=== PATIENT | female | born 1985 | race Hispanic/Latino ===

== ENCOUNTER 2021-05-24 15:21 | Observation (INO) | payer BC ==
[~2021-05-24] VITALS: Ht 162.6 cm; Wt 143.3 kg
[2021-05-24 15:22] VITALS: BP 142/88
[2021-05-24 16:29] LABS: BASOPHILS % (AUTO) 0.2 % (0.0-5.0); EOSINOPHILS % (AUTO) 0.3 % (0.0-8.0); HEMATOCRIT 34.5 % (36-48); LYMPHOCYTES % (AUTO) 15.6 % (21.0-51.0); MEAN CORPUSCULAR HEMOGLOBIN 29.1 pg (27.0-33.0); MEAN CORPUSCULAR HGB CONC 33.3 g/dL (32.0-36.0); MEAN CORPUSCULAR VOLUME 87.3 fL (79-99); MONOCYTES % (AUTO) 5.6 % (3.0-13.0); NEUTROPHILS % (AUTO) 77.7 % (40.0-77.0); PLATELET COUNT (AUTO) 270 K/uL (130-400); RED BLOOD CELL COUNT(AUTO) 3.95 MIL/uL (4.00-5.50); RED CELL DISTRIBUTION WIDTH 13.6 % (11.0-15.5)
[2021-05-24 16:33] LABS: APPEARANCE,URINE Clear (CLEAR); BILIRUBIN,URINE Negative (NEGATIVE); COLOR,URINE Yellow (YELLOW); GLUCOSE, URINE (UA) Negative (NEGATIVE); KETONES,URINE 15 mg/dL (NEGATIVE); LEUKOCYTE ESTERASE ,URINE Negative (NEGATIVE); NITRATE,URINE Negative (NEGATIVE); OCCULT BLOOD,URINE Large (NEGATIVE); PH,URINE 5.5 (5.0-8.0); PROTEIN,URINE Trace mg/dL (NEGATIVE)
[2021-05-24 16:37] LABS: INR 0.89 (0.85-1.15); PROTHROMBIN TIME 9.8 SEC (9.6-11.6)
[2021-05-24 16:38] LABS: CREATININE 0.6 mg/dL (0.5-1.5); PARTIAL THROMBOPLASTIN TIME 24.8 SEC (26.3-35.5); POTASSIUM 3.5 mmol/L (3.5-5.1)
[2021-05-24 16:42] LABS: WBC,URINE 0-1 /HPF (0-1)
[2021-05-24 16:42] LABS: ALBUMIN 2.5 g/dL (3.5-5.0); BILIRUBIN,TOTAL 0.1 mg/dL (0.2-1.0); TOTAL PROTEIN, SERUM 7.2 g/dL (6.0-8.3); URIC ACID 3.5 mg/dL (2.6-7.2)
[2021-05-24 16:43] LABS: BACTERIA,URINE Rare /HPF (None Seen); MUCUS,URINE Few LPF (None Seen); SQUAMOUS EPITHELIAL CELL,UR Few /HPF (0-2)
[2021-05-24 16:44] LABS: CALCIUM PHOSPHATE CRYSTALS,UR Rare /LPF (None Seen)
[2021-05-24] MEDS ORDERED: LIDOCAINE HCL MPF 1% 5ML VIAL IM SCH (17:00)
[2021-05-24] MEDS ORDERED: CEFTRIAXONE 1G VIAL IM ONE (17:00)
== END 2021-05-24 17:45 | disposition home or self-care (01) ==
LOC: EDH 15:21 → LDH 15:42
PROVIDERS: ADMIT Obstetrics & Gynecology; ATTEND Obstetrics & Gynecology
DX: O13.3 Gestational [pregnancy-induced] hypertension without significant proteinuria, third trimester (principal); Z3A.34 34 weeks gestation of pregnancy
CPT/HCPCS: 36415; 59025; 76805; 80053; 81001; 84550; 85025; 85384; 85610; 85730; 96372; G0378 ×2; G0379; J0696; J3490

== ENCOUNTER 2021-06-04 09:59 | Observation (INO) | payer BC ==
[~2021-06-04] VITALS: Ht 162.6 cm; Wt 144.7 kg
[2021-06-04 10:56] LABS: HEMATOCRIT 36.6 % (36-48); MEAN CORPUSCULAR HEMOGLOBIN 28.8 pg (27.0-33.0); MEAN CORPUSCULAR HGB CONC 32.8 g/dL (32.0-36.0); RED BLOOD CELL COUNT(AUTO) 4.16 MIL/uL (4.00-5.50); RED CELL DISTRIBUTION WIDTH 13.7 % (11.0-15.5); WHITE BLOOD COUNT (AUTO) 8.9 K/uL (4.8-10.8)
[2021-06-04 11:01] LABS: APPEARANCE,URINE Cloudy (CLEAR); BILIRUBIN,URINE Negative (NEGATIVE); COLOR,URINE Yellow (YELLOW); GLUCOSE, URINE (UA) Negative (NEGATIVE); KETONES,URINE 15 mg/dL (NEGATIVE); LEUKOCYTE ESTERASE ,URINE Trace (NEGATIVE); NITRATE,URINE Negative (NEGATIVE); OCCULT BLOOD,URINE Moderate (NEGATIVE); PH,URINE 5.5 (5.0-8.0); PROTEIN,URINE Negative (NEGATIVE)
[2021-06-04 11:04] LABS: BACTERIA,URINE Rare /HPF (None Seen); MUCUS,URINE Rare LPF (None Seen); SQUAMOUS EPITHELIAL CELL,UR Rare /HPF (0-2); WBC,URINE 0-1 /HPF (0-1)
[2021-06-04 12:35] LABS: CREATININE 0.6 mg/dL (0.5-1.5); POTASSIUM 3.8 mmol/L (3.5-5.1)
[2021-06-04 12:37] LABS: INR 0.89 (0.85-1.15); PROTHROMBIN TIME 9.8 SEC (9.6-11.6)
[2021-06-04 12:38] LABS: PARTIAL THROMBOPLASTIN TIME 26.2 SEC (26.3-35.5)
[2021-06-04 12:39] LABS: ALBUMIN 2.7 g/dL (3.5-5.0); BILIRUBIN,TOTAL 0.1 mg/dL (0.2-1.0); TOTAL PROTEIN, SERUM 7.5 g/dL (6.0-8.3); URIC ACID 3.7 mg/dL (2.6-7.2)
[2021-06-04 14:53] LABS: RAPID PLASMA REAGIN NONREACTIVE (NONREACTIVE)
[2021-06-04 15:53] VITALS: BP 114/58
[2021-06-05 13:14] LABS: HEPATITIS Bs ANTIGEN SCREEN P Negative (Negative)
== END 2021-06-04 13:05 | disposition home or self-care (01) ==
LOC: EDH 09:59 → LDH 10:13
PROVIDERS: ADMIT Obstetrics & Gynecology; ATTEND Obstetrics & Gynecology
DX: O13.9 Gestational [pregnancy-induced] hypertension without significant proteinuria, unspecified trimester (principal); Z3A.34 34 weeks gestation of pregnancy; Z79.899 Other long term (current) drug therapy; Z98.891 History of uterine scar from previous surgery; Z98.890 Other specified postprocedural states
CPT/HCPCS: 36415; 80053; 81001; 84550; 85027; 85384; 85610; 85730; 86592; 86701; 86850; 86900; 86901; 87340; 87390; A4351; G0378 ×3; G0379

== ENCOUNTER 2021-06-07 14:52 | Observation (INO) | payer BC ==
[~2021-06-07] VITALS: Ht 162.6 cm; Wt 141.5 kg
[2021-06-07 15:44] LABS: BASOPHILS % (AUTO) 0.2 % (0.0-5.0); EOSINOPHILS % (AUTO) 0.5 % (0.0-8.0); HEMATOCRIT 38.1 % (36-48); LYMPHOCYTES % (AUTO) 14.4 % (21.0-51.0); MEAN CORPUSCULAR HEMOGLOBIN 28.6 pg (27.0-33.0); MEAN CORPUSCULAR HGB CONC 33.1 g/dL (32.0-36.0); MEAN CORPUSCULAR VOLUME 86.6 fL (79-99); MONOCYTES % (AUTO) 5.2 % (3.0-13.0); NEUTROPHILS % (AUTO) 79.1 % (40.0-77.0); PLATELET COUNT (AUTO) 279 K/uL (130-400); RED CELL DISTRIBUTION WIDTH 13.8 % (11.0-15.5); WHITE BLOOD COUNT (AUTO) 9.9 K/uL (4.8-10.8)
[2021-06-07 15:46] LABS: APPEARANCE,URINE Clear (CLEAR); BILIRUBIN,URINE Negative (NEGATIVE); COLOR,URINE Yellow (YELLOW); GLUCOSE, URINE (UA) Negative (NEGATIVE); KETONES,URINE >=80 mg/dL (NEGATIVE); LEUKOCYTE ESTERASE ,URINE Negative (NEGATIVE); NITRATE,URINE Negative (NEGATIVE); OCCULT BLOOD,URINE Moderate (NEGATIVE); PH,URINE 6.5 (5.0-8.0); PROTEIN,URINE Negative (NEGATIVE)
[2021-06-07 15:59] LABS: INR 0.91 (0.85-1.15)
[2021-06-07] MEDS ORDERED: CALDOLOR 800MG+NS 250ML 250 ML IV PRN (16:00)
[2021-06-07] MEDS ORDERED: CEFAZOLIN SODIUM 1 GM VIAL IVP PRN (16:00)
[2021-06-07] MEDS ORDERED: LACTATED RINGERS 1000ML 1,000 ML IV SCH ×2 (16:00)
[2021-06-07 16:01] LABS: PARTIAL THROMBOPLASTIN TIME 23.2 SEC (26.3-35.5)
[2021-06-07 16:12] LABS: CREATININE 0.6 mg/dL (0.5-1.5); POTASSIUM 3.7 mmol/L (3.5-5.1)
[2021-06-07 16:15] LABS: BACTERIA,URINE Rare /HPF (None Seen); MUCUS,URINE Few LPF (None Seen); SQUAMOUS EPITHELIAL CELL,UR Few /HPF (0-2); WBC,URINE 0-1 /HPF (0-1); YEAST,URINE BUDDING Rare /HPF (None Seen)
[2021-06-07 16:16] LABS: ALBUMIN 2.8 g/dL (3.5-5.0); BILIRUBIN,TOTAL 0.2 mg/dL (0.2-1.0); HYALINE CASTS, URINE 0-1 /LPF (0-1 /LPF); TOTAL PROTEIN, SERUM 7.7 g/dL (6.0-8.3); URIC ACID 3.7 mg/dL (2.6-7.2)
== END 2021-06-07 17:20 | disposition home or self-care (01) ==
LOC: LDH 14:52 → INTOOBSV 14:52
PROVIDERS: ADMIT Obstetrics & Gynecology; ATTEND Obstetrics & Gynecology
DX: O13.9 Gestational [pregnancy-induced] hypertension without significant proteinuria, unspecified trimester (principal); Z3A.34 34 weeks gestation of pregnancy
CPT/HCPCS: 36415; 80053; 81001; 84550; 85025; 85384; 85610; 85730; 86850; 86900; 86901; G0378

== ENCOUNTER 2021-06-14 16:13 | Inpatient (IN) | payer BC ==
[~2021-06-14] VITALS: Ht 162.6 cm; Wt 142.9 kg
[2021-06-14] MEDS ORDERED: LACTATED RINGERS 1000ML 1,000 ML IV PRN (17:00)
[2021-06-14] MEDS ORDERED: OXYTOCIN-LR 20 UNITS/1000 ML 1,000 ML IV SCH (17:00)
[2021-06-14 17:29] LABS: BASOPHILS % (AUTO) 0.3 % (0.0-5.0); EOSINOPHILS % (AUTO) 0.5 % (0.0-8.0); HEMATOCRIT 38.6 % (36-48); LYMPHOCYTES % (AUTO) 14.7 % (21.0-51.0); MEAN CORPUSCULAR HEMOGLOBIN 28.6 pg (27.0-33.0); MEAN CORPUSCULAR HGB CONC 32.9 g/dL (32.0-36.0); MEAN CORPUSCULAR VOLUME 86.9 fL (79-99); MONOCYTES % (AUTO) 5.3 % (3.0-13.0); NEUTROPHILS % (AUTO) 78.6 % (40.0-77.0); PLATELET COUNT (AUTO) 289 K/uL (130-400); RED BLOOD CELL COUNT(AUTO) 4.44 MIL/uL (4.00-5.50); RED CELL DISTRIBUTION WIDTH 13.9 % (11.0-15.5); WHITE BLOOD COUNT (AUTO) 10.6 K/uL (4.8-10.8)
[2021-06-14 17:39] LABS: CREATININE 0.6 mg/dL (0.5-1.5)
[2021-06-14 17:41] LABS: INR 0.94 (0.85-1.15); PROTHROMBIN TIME 10.3 SEC (9.6-11.6)
[2021-06-14 17:42] LABS: PARTIAL THROMBOPLASTIN TIME 25.5 SEC (26.3-35.5)
[2021-06-14 17:43] LABS: ALBUMIN 2.8 g/dL (3.5-5.0); BILIRUBIN,TOTAL 0.2 mg/dL (0.2-1.0); TOTAL PROTEIN, SERUM 7.9 g/dL (6.0-8.3); URIC ACID 3.8 mg/dL (2.6-7.2)
[2021-06-14] MEDS ORDERED: DEXAMETHASONE SOD PHOSPHATE 10MG/ML 1ML VIAL ONE (18:54)
[2021-06-14] MEDS ORDERED: ONDANSETRON 4MG INJ ONE ×3 (18:54→23:25)
[2021-06-14] MEDS ORDERED: OXYTOCIN 10 UNIT/1ML 10ML VIAL ONE (18:54)
[2021-06-14] MEDS ORDERED: PHENYLEPHRINE HCL 10 MG/ML 1ML VIAL IV ONE (18:54)
[2021-06-14] MEDS ORDERED: EPHEDRINE SULFATE 50 MG/ML AMPULE ONE (18:55)
[2021-06-14] MEDS ORDERED: MORPHINE PF 100MG/10ML AMP IV ONE (18:55)
[2021-06-14] MEDS ORDERED: CEFAZOLIN SODIUM 1 GM VIAL ONE (19:24)
[2021-06-14] MEDS ORDERED: CEFAZOLIN SODIUM 1 GM VIAL IVP SCH (19:30)
[2021-06-14] MEDS ORDERED: FENTANYL CITRATE PF 50 MCG/1 ML 2ML VIAL ONE (20:27)
[2021-06-14] MEDS ORDERED: 0.9%NACL 10ML VIAL IVP PRN (20:30)
[2021-06-14] MEDS ORDERED: PROMETHAZINE HCL 25 MG/ML 1ML AMPULE IM PRN (20:30)
[2021-06-14] MEDS ORDERED: MEPERIDINE-PF 75 MG/ML SYG IM PRN (20:30)
[2021-06-14] MEDS ORDERED: OXYTOCIN-LR 20 UNITS/1000 ML 1,000 ML IV PRN (20:30)
[2021-06-14] MEDS ORDERED: DEXTROSE 5 %-0.45 % NACL 1,000 ML IV PRN (20:30)
[2021-06-14] MEDS ORDERED: CALDOLOR 800MG+NS 250ML 250 ML IV ONE (21:13)
[2021-06-14] MEDS ORDERED: ONDANSETRON 4MG INJ IVP PRN (23:30)
[2021-06-15] VITALS (7 sets, daily range): BP systolic 96–124; BP diastolic 41–68
[2021-06-15] MEDS ORDERED: PROMETHAZINE HCL 25 MG/ML 1ML AMPULE IM PRN (00:30)
[2021-06-15] MEDS ORDERED: METOCLOPRAMIDE 10 MG/2 ML VIAL IVP PRN (01:00)
[2021-06-15] MEDS ORDERED: SCOPOLAMINE HYDROBROMIDE 1 EACH ADH..PATCH TD SCH (01:00)
[2021-06-15] MEDS ORDERED: SCOPOLAMINE HYDROBROMIDE 1 EACH ADH..PATCH TD ONE (01:05)
[2021-06-15] MEDS ORDERED: PREN-196 PO (02:18)
[2021-06-15] MEDS ORDERED: ASPI-1197 PO (02:18)
[2021-06-15] MEDS ORDERED: DIPH,PERTUSS(ACELL),TET VAC/PF 0.5 ML VIAL IM ONE (04:30)
[2021-06-15] MEDS: CALDOLOR 800MG+NS 250ML 250 ML IV SCH ×2 (04:35→11:27)
[2021-06-15 06:32] LABS: HEMATOCRIT 35.1 % (36-48); MEAN CORPUSCULAR HEMOGLOBIN 28.5 pg (27.0-33.0); MEAN CORPUSCULAR HGB CONC 32.5 g/dL (32.0-36.0); MEAN CORPUSCULAR VOLUME 87.8 fL (79-99); RED CELL DISTRIBUTION WIDTH 13.8 % (11.0-15.5); WHITE BLOOD COUNT (AUTO) 13.3 K/uL (4.8-10.8)
[2021-06-15] MEDS ORDERED: IBUPROFEN 600 MG TABLET PO PRN (08:00)
[2021-06-15] MEDS ORDERED: HYDROCODONE/ACETAMINOPHEN 5/325 MG TAB PO PRN (08:00)
[2021-06-15] MEDS ORDERED: ACETAMINOPHEN WITH CODEINE 1 TAB TAB PO PRN (08:00)
[2021-06-15] MEDS ORDERED: BISACODYL 10 MG SUPP.RECT RC PRN (08:00)
[2021-06-15] MEDS ORDERED: LANOLIN 30GM OINTMENT TP PRN (08:00)
[2021-06-15] MEDS ORDERED: ACETAMINOPHEN 500 MG TABLET PO PRN (08:00)
[2021-06-15] MEDS: DOCUSATE SODIUM 100 MG CAP PO SCH ×2 (08:28→21:04)
[2021-06-15] MEDS: SIMETHICONE 80 MG TAB.CHEW PO PRN ×2 (08:29→21:04)
[2021-06-15] MEDS: IBUPROFEN 800 MG TAB PO SCH (21:04)
[2021-06-16 03:15] VITALS: BP 107/46
[2021-06-16] MEDS: IBUPROFEN 800 MG TAB PO SCH ×2 (03:34→13:02)
[2021-06-16 07:22] VITALS: BP 130/59
[2021-06-16 07:40] LABS: HEPATITIS Bs ANTIGEN SCREEN P Negative (Negative)
[2021-06-16] MEDS: DOCUSATE SODIUM 100 MG CAP PO SCH (09:26)
[2021-06-16] MEDS: SIMETHICONE 80 MG TAB.CHEW PO PRN ×2 (09:26→13:01)
[2021-06-16 12:03] VITALS: BP 105/61
[2021-06-16] MEDS ORDERED: IBUP-2077 PO (13:06)
[2021-06-16] MEDS ORDERED: DOCU-116 PO (13:06)
[2021-06-16] MEDS ORDERED: ACET1TAB25 PO (13:08)
[2021-06-16] MEDS ORDERED: IBUPROFEN 800 MG TAB PO SCH (13:30)
== END 2021-06-16 14:45 | disposition home or self-care (01) | DRG 788 ==
LOC: EDH 16:13 → LDH 16:14 → WSH 06-15 01:18
PROVIDERS: ADMIT Obstetrics & Gynecology; ATTEND Obstetrics & Gynecology
PROC: 3E0234Z Introduction of Serum, Toxoid and Vaccine into Muscle, Percutaneous Approach (ICD-10-PCS; 2021-06-14)
PROC: 10D00Z1 Extraction of Products of Conception, Low, Open Approach (ICD-10-PCS; principal; 2021-06-14 19:30)
DX: O34.211 Maternal care for low transverse scar from previous cesarean delivery (principal); Z3A.37 37 weeks gestation of pregnancy; Z37.0 Single live birth; E66.01 Morbid (severe) obesity due to excess calories; O14.04 Mild to moderate pre-eclampsia, complicating childbirth; O99.214 Obesity complicating childbirth; Z23 Encounter for immunization
CPT/HCPCS: 36415; 59510; 80053; 84550; 85025; 85027; 85384; 85610; 85730; 86592; 86850; 86900; 86901; 87340; 90715; A4344; G0378; J0690; J1100; J1741; J2274; J2370; J2405; J2550; J2590; J3010; J3490; J7120